=== PATIENT | female | born 1955 | race African-American/Black ===

== ENCOUNTER 2021-03-13 06:08 | Emergency (ER) | payer MEDICARE ==
[2021-03-13 07:24] LABS: Hemoglobin 12.2 g/dL (12.0-15.5); Mean Corpuscular HGB CONC 32.4 g/dL (32.0-36.0); Mean Corpuscular Hemoglobin 28.8 pg (27.0-33.0); Mean Corpuscular Volume 88.9 fl (81.6-98.3); Mean Platelet Volume 11.1 fl (7.4-10.4); Platelet Count 259 10x3/uL (150-450); RBC Distribution Width 13.6 % (11.5-14.5); Red Blood Cell (RBC) Count 4.23 10x6/uL (3.90-5.03); White Blood Cell (WBC) Count 15.1 10x3/uL (3.5-10.5)
[2021-03-13 07:40] LABS: ALT (SGPT) 31 U/L (8-55); AST (SGOT) 21 U/L (5-34); Albumin 3.9 g/dL (3.4-4.8); Alkaline Phosphatase 99 U/L (40-110); Anion Gap 12 mmol/L (10-20); BUN (Urea Nitrogen) 16 mg/dL (9.8-20.1); Bilirubin, Total 0.2 mg/dL (0.2-1.2); CK (CPK) 143 U/L (29-168); Calc. Creatinine Clearance 0 mL/min (70-130); Calcium 8.8 mg/dL (7.8-10.44); Carbon Dioxide 24 mmol/L (23-31); Chloride 110 mmol/L (98-107); Globulin 3.3 g/dL (2.4-3.5); Glucose 89 mg/dL (80-115); Magnesium 2.2 mg/dL (1.6-2.6); Potassium 3.1 mmol/L (3.5-5.1); Protein, Total 7.2 g/dL (5.8-8.1); Sodium 143 mmol/L (136-145)
[2021-03-13] MEDS ORDERED: Potassium Chloride 20 MEQ TAB ONE (08:01)
[2021-03-13 09:01] LABS: Lymphocytes 55 % (21-51); Monocytes 4 % (0-10); Neutrophil 41 % (42-75)
[2021-03-13 09:02] LABS: MDiff Complete? YES
[2021-03-13 09:03] LABS: Platelet Morphology Comment Appears Adequate; RBC Morphology Normal
== END 2021-03-13 09:22 | disposition home or self-care (01) ==
LOC: CSHERS 06:08
DX: E87.6 Hypokalemia (principal); R20.2 Paresthesia of skin; I10 Essential (primary) hypertension; Z79.899 Other long term (current) drug therapy
CPT/HCPCS: 80053; 82550; 83735; 85025; 99284

== ENCOUNTER 2023-02-01 09:31 | Day surgery (SDC) | payer MEDICARE, OTHER ==
[2023-02-01 10:01] VITALS: BP 153/71; TEMP 98.5
== END 2023-02-01 11:58 | disposition home or self-care (01) ==
LOC: CSHRAD 09:31
PROVIDERS: ATTEND Neurological Surgery
PROC: B02BYZZ Computerized Tomography (CT Scan) of Spinal Cord using Other Contrast (ICD-10-PCS; principal; 2023-02-01)
DX: M54.12 Radiculopathy, cervical region (principal); I10 Essential (primary) hypertension; Z90.89 Acquired absence of other organs; Z90.710 Acquired absence of both cervix and uterus; Z96.643 Presence of artificial hip joint, bilateral; Z79.899 Other long term (current) drug therapy
CPT/HCPCS: 62302; 72126